=== PATIENT | female | born 1950 | race Caucasian/White ===

== ENCOUNTER → 2021-11-29 07:57 | Outpatient (CLI) | payer MEDICARE, MEDICAID, SELFPAY ==
--- NOTE | 2021-11-29 | DI.MG.S_ITS ---
BILATERAL DIGITAL DIAGNOSTIC MAMMOGRAM 3D/2D: 11/29/2021 CLINICAL: Bilateral breast lumps. Baseline by default. No prior exams were available for comparison. The tissue of both breasts is heterogeneously dense. This may lower the sensitivity of mammography. There is a 1.9 cm mass with a spiculated margin in the right breast at 1 o'clock posterior depth. This correlates as palpated. There is a focal asymmetry with an indistinct margin in the left breast at 1 o'clock posterior depth. This correlates as palpated. No other significant masses or calcifications are seen in either breast. IMPRESSION: INCOMPLETE: NEEDS ADDITIONAL IMAGING EVALUATION The 1.9 cm mass in the right breast at 1 o'clock posterior depth is indeterminate. The focal asymmetry in the left breast at 1 o'clock posterior depth is indeterminate. A targeted ultrasound is recommended and will immediately follow. This exam was interpreted at Station ID: [id number]. NOTE: For mammograms, a report in lay terms will be sent to the patient. Approximately 15% of breast malignancies will not be visualized mammographically. In the management of a palpable breast mass, a negative mammogram must not discourage biopsy of a clinically suspicious lesion. Electronically Signed By: Khang Gaspar M.D. slc/:11/29/2021 08:49:05 ACR BI-RADS Category 0: Incomplete [id number]
--- NOTE | 2021-11-29 08:01 | DI.US.S_ITS ---
LIMITED ULTRASOUND OF LEFT BREAST AND AXILLA: 11/29/2021 CLINICAL: Palpable left breast lump. Comparison is made to exam dated: 11/29/2021 mammogram - [facility]. Color flow and real-time ultrasound of the left breast 1 o'clock, and axilla regions were performed. Stokes scale images of the real-time examination were reviewed. There is a 2.2 cm x 2.2 cm x 1.3 cm irregular mass with a spiculated margin in the left breast at 1 o'clock posterior depth 9 cm from the nipple. This correlates as palpated and with mammography findings. Color flow imaging demonstrates that there is vascularity present. No significant abnormalities were seen sonographically in the left axilla. IMPRESSION: HIGHLY SUGGESTIVE OF MALIGNANCY The 2.2 cm x 2.2 cm x 1.3 cm irregular mass in the left breast is highly suggestive of malignancy. An ultrasound guided biopsy is recommended. Exam findings were discussed with the patient by Dr. Borrego. This exam was interpreted at Station ID: [id number]. Electronically Signed By: Khang Gaspar M.D. slc/:11/29/2021 09:21:07 Entry: - 11/30/2021 09:42:37 Ultrasound BI-RADS: 5 Highly suggestive of malignancy
--- NOTE | 2021-11-29 08:01 | DI.US.S_ITS ---
LIMITED ULTRASOUND OF RIGHT BREAST AND AXILLA: 11/29/2021 CLINICAL: Palpable right breast lump. Comparison is made to exam dated: 11/29/2021 mammogram - [facility]. Color flow and real-time ultrasound of the right breast 1 o'clock, and axilla regions were performed. Stokes scale images of the real-time examination were reviewed. There is a 2.8 cm x 1.8 cm x 1.5 cm mass with a spiculated margin in the right breast at 1 o'clock posterior depth 4 cm from the nipple. This correlates as palpated and with mammography findings. Color flow imaging demonstrates that there is an adjacent vascularity. No significant abnormalities were seen sonographically in the right axilla. IMPRESSION: HIGHLY SUGGESTIVE OF MALIGNANCY The 2.8 cm x 1.8 cm x 1.5 cm mass in the right breast is highly suggestive of malignancy. An ultrasound guided biopsy is recommended. Exam findings were discussed with the patient by Dr. Borrego. This exam was interpreted at Station ID: [id number]. Electronically Signed By: Khang Gaspar M.D. slc/:11/29/2021 09:23:45 letter sent: Biopsy Required Ultrasound BI-RADS: 5 Highly suggestive of malignancy
== END ==
PROVIDERS: PCP Internal Medicine; Referring Provider Internal Medicine; Visit Provider Internal Medicine
DX: N63.22 Unspecified lump in the left breast, upper inner quadrant (principal); N63.12 Unspecified lump in the right breast, upper inner quadrant; R92.8 Other abnormal and inconclusive findings on diagnostic imaging of breast
CPT/HCPCS: 76642; 77066; G0279

== ENCOUNTER → 2022-01-12 07:23 | Outpatient (CLI) | payer MEDICARE, MEDICAID, SELFPAY ==
--- NOTE | 2022-01-12 | PATH_ITS ---
[facility] Accession Number: [id number] No. of containers..01 Tissue . 01 Material submitted: . breast - LEFT BREAST MASS 1:00 9 CMFN . 01 Diagnosis: Left Breast Mass at 1 o'clock, 9 cm from Nipple, Needle Core Biopsy: Invasive mammary carcinoma. Please see Cancer Case Summary. . . CANCER CASE SUMMARY: Specimen: Needle biopsy. Specimen laterality: Left. Tumor site: Upper outer quadrant; 1 o'clock, 9 cm from nipple. 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 Histologic grade: Low grade. Glandular/tubular differentiation: Score 2 of 3. Nuclear pleomorphism: Score 2 of 3. Mitotic rate: Score 1 of 3. Overall grade: Grade 1 (score 5/9). Tumor size: At least 3 mm in greatest dimension. Ductal carcinoma in situ: Minute focus present, micropapillary pattern, low nuclear grade, no necrosis present. Lymphovascular invasion: Not identified. Microcalcifications: Not identified. [facility] 01/17/2022 1554 Local . 01 Comment: As part of routine quality specialist, this case was also reviewed by Dr. Liao, who agrees with the interpretation. . 01 Electronically signed: . Leatha Francois MD, Pathologist NPI- [id number] . 01 Gross description: . Received in formalin, labeled with the patient's name, are multiple pieces of marley adipose tissue measuring 0.7 x 0.4 x 0.3 cm to 0.3 x 0.3 x 0.2 cm. All tissue is entirely submitted in cassette A1. Collection date and time are listed as 01/12/2022 at 09:14 a.m., for a total approximate fixation time of 22 hours. ([id number]) /FRR 01/13/2022 1317 Local . 01 Microscopic: . An immunohistochemistry panel is performed to further evaluate the cells of interest. The control stains show appropriate reactivity. . RESULTS: P63: Diminished in regions of interest. SMMS1: Diminished in regions of interest. E-cadherin: Positive in regions of interest, consistent with ductal differentiation. ISAURA: Positive in regions of interest. GATA3: Strongly positive in regions of interest. . Regions of interest demonstrate diminished p63 and SMMS-1 staining, supporting the presence of invasion. Strong ISAURA and YARELI-3 staining supports a primary mammary adenocarcinoma; E-cadherin positivity confirms ductal differentiation in more solid regions. . . CAP BREAST BIOMARKER REPORTING TEMPLATE: Estrogen Receptor (ER) Status: Positive, 90% of tumor nuclei. Average intensity of staining: Moderate. Primary antibody: SP1 Progesterone Receptor (PgR) Status: Positive, 90% of tumor nuclei. Average intensity of staining: Strong. Primary antibody: 1E2 HER2 (by immunohistochemistry): Negative at 1+. Primary antibody: 4B5 . . Cold Ischemia and Fixation Times: Meets requirements in the latest version of the ASCO/CAP guidelines. Testing performed on Block Number: A1 . TECHNICAL NOTE: The scoring criteria for breast biomarkers by immunohistochemistry is based on the current ASCO/CAP guidelines (Ирина et al, Arch Pathol Lab Med 2010: 134(6): 907-922 / Brent MYLES et al, Arch Pathol Lab Med 2014: 138(2):241-256). Deparaffinized sections of formalin fixed tissue (along with appropriate positive controls) are incubated with the above antibody(s). Using the automated [place] stainer, tissue is incubated with the designated antibody* which is then localized by a non-biotin, dual polymer detection system. The external controls are reviewed for appropriate reactivity and found to be adequate. Results on the target cell population are indicated above. These tests have not been validated on decalcified tissue. . * This test was developed and its performance characteristics determined by [employer]. It has not been cleared or approved by the U.S. Food and Drug Administration. The FDA has determined that such clearance or approval is not necessary. This test is used for clinical purposes. It should not be regarded as investigational or for research. . 01 Pathologist provided ICD-10: C50.912 . 01 CPT . 608322, 304058, 571792, 524008, M33614, K28207 Specimen Comment: A courtesy copy of this report has been sent to [phone] Performed at: 01 [facility] [address] [place] [address] [id number] MD Augusto Morris MD Phone: [phone]
--- NOTE | 2022-01-12 | DI.MG.S_ITS ---
UNILATERAL LEFT DIGITAL DIAGNOSTIC MAMMOGRAM 3D/2D: 01/12/2022 CLINICAL: Post clip left. Comparison is made to exams dated: 11/29/2021 ultrasound, 11/29/2021 ultrasound, and 11/29/2021 mammogram - . The tissue of left breast is heterogeneously dense. This may lower the sensitivity of mammography. There is a marker clip in the appropriate position in the left breast at 1 o'clock middle depth. This marker clip placement is at the biopsy site. IMPRESSION: POST PROCEDURE MAMMOGRAM FOR MARKER PLACEMENT There was a successful marker clip placement in the left breast middle depth. Based on the Tyrer Cuzick model (a risk assessment model) the patient's lifetime risk is 7.9% and her 10 year risk is 5.4%. According to the ACR, ACS, and NCCN guidelines, an annual breast MRI exam along with mammogram is recommended if the patient's lifetime risk is 20% or greater. This exam was interpreted at Station ID: [id number]. NOTE: For mammograms, a report in lay terms will be sent to the patient. Approximately 15% of breast malignancies will not be visualized mammographically. In the management of a palpable breast mass, a negative mammogram must not discourage biopsy of a clinically suspicious lesion. Electronically Signed By: Mikki escudero/tamika:01/12/2022 10:09:20 ACR BI-RADS Category Post-procedure mammogram for marker placement
--- NOTE | 2022-01-12 | DI.US.S_ITS ---
ULTRASOUND GUIDED BIOPSY LEFT BREAST USING VACUUM DEVICE WITH MARKING DEVICE INSERTED AND POST DIGITAL MAMMOGRAPHIC IMAGIN01/12/2022 CLINICAL: Left breast mass. PATIENT CONSENT: Risks (minor bleeding, infection, vasovagal reaction and repeat procedure), benefits and alternatives were explained to the patient and written informed consent was obtained. Correlation is made to exams dated: 01/12/2022 mammogram, 11/29/2021 ultrasound, and 11/29/2021 mammogram - [facility]. An ultrasound guided biopsy using real-time ultrasound was performed for the irregular shaped mass located in the left breast at 1 o'clock middle depth. The skin was prepped in the usual manner. Local anesthetic was administered to the access site. A skin ama was made in the breast. The abnormality was approached from the lateral aspect. A 13 gauge biopsy needle was placed adjacent to the abnormality under ultrasound guidance. Once the needle was documented to be in the correct location, four specimens were obtained using the Mammotome biopsy system. A Celero biopsy clip was inserted into the biopsy cavity. A skin closure strip was applied to the access site. Post procedure digital mammographic imaging demonstrates the location device at the targeted area. The specimens were sent to the laboratory for pathological analysis. IMPRESSION: ULTRASOUND GUIDED BIOPSY MALIGNANT Ultrasound guided biopsy of the mass in the left breast at 1 o'clock middle depth was successful. Pathology indicates malignant invasive mammary carcinoma and small focus of DCIS micropapillary. Pathology results are concordant with imaging findings. A surgical/oncologic consultation is recommended. Recommend ultrasound guided biopsy of highly suspicious right breast mass evaluated on prior examination dated 11/29/2021. This exam was interpreted at Station ID: [id number]. Mikki Strong M.D. [facility],aty/:01/18/2022 11:07:17
== END ==
PROVIDERS: PCP Internal Medicine; Referring Provider Internal Medicine; Visit Provider Internal Medicine
DX: C50.412 Malignant neoplasm of upper-outer quadrant of left female breast (principal); Z17.0 Estrogen receptor positive status [ER+]
CPT/HCPCS: 19083; 77065